=== PATIENT | male | born 1970 | race Caucasian/White ===

== ENCOUNTER 2017-10-24 00:30 | Emergency (ER) | payer SELFPAY ==
[~2017-10-24] VITALS: Ht 195.6 cm; Wt 210.0 kg
[2017-10-24 00:33] VITALS: BP 144/81; PULSE 81; RESP 16; TEMP 97.6; O2SAT 98
[2017-10-24] MEDS ORDERED: AMOX875T PO (02:04)
[2017-10-24] MEDS ORDERED: IPRA0.06 EACH NARE (02:04)
--- NOTE | 2017-10-24 02:04 | PD ---
HPI Chief Complaint: Cold / Flu Symptoms Time Seen by Provider: 01:34 Travel History International Travel<30 days: No Contact w/Intl Traveler<30days: No Traveled to known affect area: No History of Present Illness HPI Patient is a 47-year-old male presenting to the emergency department for evaluation of nasal congestion and sneezing. Patient states the symptoms started 5 days ago, he denies any consistent cough, fevers, headache, chest pain , shortness of breath, body aches, sore throat. Patient has been trialing over- the-counter Claritin and Nasonex since today there are no exacerbating factors, there are no alleviating factors. Symptom onset was gradual. Patient has no other complaints at this time. PFSH Past Medical History Hx Anticoagulant Therapy: Yes (Warfarin) Cardiovascular Problems: Yes (blood clots) Deep Vein Thrombosis: Yes (RLE, PE) Tetanus Vaccination: < 5 Years Influenza Vaccination: Yes Past Surgical History Tonsillectomy: Yes Social History Alcohol Use: Yes (rarely) Tobacco Use: No Substance Use: No Allergies-Medications (Allergen,Severity, Reaction): Coded Allergies: Sulfa (Sulfonamide Antibiotics) (Verified Allergy, Unknown, 10/24/17) Reported Meds & Prescriptions Reported Meds & Active Scripts Active Amoxicillin 875 Mg Tab 875 Mg PO BID 10 Days Ipratropium Nasal 0.06% [place] 1 [place] EACH NARE QID Review of Systems Except as stated in HPI: all other systems reviewed are Neg General / Constitutional: No: Fever, Chills HENT: Positive: Rhinitis, Rhinorrhea, Congestion, No: Headaches, Sore Throat Cardiovascular: No: Chest Pain or Discomfort Respiratory: No: Cough, Shortness of Breath, Wheezing Gastrointestinal: No: Nausea, Abdominal Pain Musculoskeletal: No: Myalgias Physical Exam Narrative GENERAL: Obese, well-developed, alert male. Presenting in no acute distress. SKIN: Warm and dry. HEAD: Atraumatic. Normocephalic. EYES: Pupils equal and round. No scleral icterus. No injection or drainage. ENT: No nasal bleeding or discharge. Mucous membranes pink and moist. Posterior pharynx with cobblestone appearance. NECK: Trachea midline. No JVD. CARDIOVASCULAR: Regular rate and rhythm. RESPIRATORY: No accessory muscle use. Clear to auscultation. Breath sounds equal bilaterally. GASTROINTESTINAL: Abdomen soft, non-tender, nondistended. Hepatic and splenic margins not palpable. MUSCULOSKELETAL: Extremities without clubbing, cyanosis, or edema. No obvious deformities. NEUROLOGICAL: Awake and alert. No obvious cranial nerve deficits. Motor grossly within normal limits. Five out of 5 muscle strength in the arms and legs. Normal speech. PSYCHIATRIC: Appropriate mood and affect; insight and judgment normal. Data Data Last Documented VS Vital Signs Date Time Temp Pulse Resp B/P (MAP) Pulse Ox O2 Delivery O2 Flow Rate FiO2 10/24/17 00:33 97.6 81 16 144/81 (102) 98 Room Air Orders Orders Ed Discharge Order (10/24/17 02:01) MDM Medical Decision Making Medical Screen Exam Complete: Yes Emergency Medical Condition: Yes Interpretation(s) Vital Signs Date Time Temp Pulse Resp B/P (MAP) Pulse Ox O2 Delivery O2 Flow Rate FiO2 10/24/17 00:33 97.6 81 16 144/81 (102) 98 Room Air Differential Diagnosis Allergic rhinitis versus URI versus bronchitis versus other Narrative Course Patient is a 47-year-old male that presented to the emergency department for evaluation of sneezing and nasal congestion. Patient appears well, his vital signs are stable and he is afebrile. Exam appears most consistent with a common cold/viral syndrome. Patient is encouraged to continue symptom management. He was provided with a prescription for ipratropium nasal spray, he is encouraged to continue use of Nasonex as well. He will be provided with a prescription for backup antibiotic should his symptoms begin to worsen or do not improve. He was advised to complete full course of antibiotics as prescribed even if he began to feel better. He verbalized understanding of these instructions. Patient stable for discharge. Diagnosis Primary Impression: URI (upper respiratory infection) Qualified Codes: J06.9 - Acute upper respiratory infection, unspecified Referrals: Primary Care Physician Patient Instructions: General Instructions, Upper Respiratory Infection (ED) Additional Instructions: Follow-up with your primary doctor Continue symptom management Return to emergency department with new or worsening symptoms If you begin antibiotic complete full course of therapy. Med/Other Pt SpecificInfo: Prescription(s) given Scripts Amoxicillin (Amoxicillin) 875 Mg Tab 875 MG PO BID for Infection for 10 Days, #20 TAB 0 Refills Prov: Adelina Adhikari 10/24/17 Ipratropium Nasal (Ipratropium Nasal) 0.06% [place] 1 SPRAY EACH NARE QID, #1 BOTTLE 0 Refills Prov: Adelina Adhikari 10/24/17 Disposition: 01 DISCHARGE HOME Condition: Stable Adelina Adhikari Oct 24, 2017 02:04
== END 2017-10-24 03:01 | disposition home or self-care (01) ==
LOC: NEPD 00:30
DX: J06.9 Acute upper respiratory infection, unspecified (principal); Z86.718 Personal history of other venous thrombosis and embolism; Z86.711 Personal history of pulmonary embolism
CPT/HCPCS: 99283